=== PATIENT | male | born 1975 | race American Indian/Alaskan Native ===

== ENCOUNTER 2020-01-13 01:22 | Observation (INO) | payer OTHER ==
[2020-01-13] MEDS ORDERED: FAMOTIDINE 20 MG/2 ML INJ IV ONE (01:49)
[2020-01-13 02:08] LABS: Basophils # (Auto) 0.1 K/mm3 (0.0-0.1); Basophils % (Auto) 1.8 % (0.0-1.8); Eosinophils # (Auto) 0.1 K/mm3 (0.0-0.4); Eosinophils % (Auto) 1.7 % (0.0-4.3); Hematocrit 46.5 % (35.5-45.6); Hemoglobin 15.6 gm/dl (11.8-15.2); Lymphocytes # (Auto) 2.8 K/mm3 (1.2-5.4); Lymphocytes % (Auto) 39.1 % (13.4-35.0); Mean Corpuscular HGB Conc 34 % (32-34); Mean Corpuscular Volume 87 fl (84-94); Monocytes # (Auto) 0.6 K/mm3 (0.0-0.8); Platelet Count 323 K/mm3 (140-440); Red Blood Count 5.38 M/mm3 (3.65-5.03); Red Cell Distribution Width 14.8 % (13.2-15.2)
[2020-01-13 02:28] LABS: BUN/Creatinine Ratio 11; Blood Urea Nitrogen 12 mg/dL (9-20); Calcium 10.1 mg/dL (8.4-10.2); Hemolysis Index 6
--- NOTE | 2020-01-13 02:38 | Emergency Department Report ---
HPI - General Chief Complaint: Allergic Reaction Time Seen by Provider: 01/13/20 01:44 - HPI HPI: 44-year-old -Ivorian male presents to the emergency department with the complaint of swelling to the throat and some shortness of breath that appears to be an allergic reaction. The patient woke up this evening around 10 PM with the symptoms. He went to an urgent care where he received a steroid injection and some Benadryl and was told to come to the emergency department. The patient has a history of hypertension for which he takes lisinopril. He denies any swelling of the tongue, lips, difficulty swallowing. The patient also says that he feels improved from when the symptoms first began. He denies any fever, chest pain, lower extremity swelling, hives. ED Past Medical Hx - Past Medical History Previous Medical History?: Yes Hx Hypertension: Yes - Surgical History Past Surgical History?: Yes Additional Surgical History: left wrist - Social History Smoking Status: Current Every Day Smoker Substance Use Type: Alcohol ED Review of Systems ROS: Stated complaint: ALLERGIC REACTION/SWOLLEN THROAT Other details as noted in HPI Comment: All other systems reviewed and negative Constitutional: denies: chills, fever ENT: throat pain. denies: ear pain Respiratory: shortness of breath. denies: cough Cardiovascular: denies: chest pain, palpitations Gastrointestinal: denies: abdominal pain, vomiting Genitourinary: denies: dysuria, discharge Musculoskeletal: denies: back pain, arthralgia Neurological: denies: headache, weakness Physical Exam - Physical Exam Vital Signs: Vital Signs 01/13/20 01/13/20 01:27 01:32 Temperature 98.6 F Pulse Rate 99 H Respiratory 18 Rate Blood Pressure 242/171 Blood Pressure 220/120 [Right] O2 Sat by Pulse 98 Oximetry Physical Exam: GENERAL: The patient is well-developed well-nourished. HENT: Normocephalic. Atraumatic. Patient has moist mucous membranes. There is significant uvular edema seen. No drooling or trismus. Patient has a slightly muffled voice. EYES: Extraocular motions are intact. Pupils equal reactive to light bilaterally. NECK: Supple. Trachea is midline. CHEST/LUNGS: Clear to auscultation. There is no respiratory distress noted. HEART/CARDIOVASCULAR: Regular. There is no tachycardia. ABDOMEN: Abdomen is soft, nontender. Patient has normal bowel sounds. SKIN: Skin is warm and dry. NEURO: The patient is awake, alert, and oriented. The patient is cooperative. The patient has no focal neurologic deficits. Normal speech. MUSCULOSKELETAL: There is no tenderness or deformity. There is no evidence of acute injury. ED Course Vital Signs 01/13/20 01/13/20 01:27 01:32 Temperature 98.6 F Pulse Rate 99 H Respiratory 18 Rate Blood Pressure 242/171 Blood Pressure 220/120 [Right] O2 Sat by Pulse 98 Oximetry ED Medical Decision Making - Lab Data Result diagrams: 01/13/20 01:54 01/13/20 01:54 - Radiology Data Radiology results: report reviewed CT neck w con INDICATION / CLINICAL INFORMATION: 44 years Male; Pt complains of his throat swelling. TECHNIQUE: Contiguous thin cut axial images obtained through the neck following IV contrast. Sagittal and coronal reconstructions performed by the technologist. All CT scans at this location are performed using CT dose reduction for ALARA by means of automated exposure control. COMPARISON: None available. FINDINGS: There is extensive fluid signal along the prevertebral soft tissues, most notably at the C4-5 level measuring approximately 1 cm greatest AP dimension at. This collection is fairly well- circumscribed without significant peripheral enhancement and would appear to be reactive. Retropharyngeal abscess would be expected to demonstrate more irregular in appearance with enhancement. There are mild endplate changes anteriorly at C4-5 and C5-6. However, there is no clear CT evidence of erosive changes to indicate discitis. Furthermore, no significant hypertrophic changes are seen along the inferior arch of C1 to indicate tendinitis. MUCOSAL SPACE: There is prominence of the nasopharyngeal and palatine soft tissues which is nonspecific though may reflect lymphoid hypertrophy. There is motion artifact along the pharyngeal and laryngeal structures which may be related to swal lowing. The epiglottis is appropriate in size. There is suggestion of some edematous changes involving the right supraglottic soft tissues though this may be exacerbated by the degree of motion. There is effacement of the piriform sinuses bilaterally. LYMPH NODES: There are a few scattered cervical lymph nodes, the most prominent within the jugulodigastric regions measuring approximately 1.2 cm in short axis diameter on the right. The nodes are nonspecific though may also be reactive. SALIVARY GLANDS: The parotid and submandibular glands demonstrate fairly symmetric attenuation without calcifi cation. THYROID GLAND: The thyroid gland appears appropriate in size and contour without focal lesions. PARANASAL SINUSES: Visualized paranasal sinuses and mastoid air cells are essentially clear. SPINE: As above VASCULAR STRUCTURES: The vascular structures appear to demonstrate appropriate contrast opacification. There is a focus of air projected along the right tracheoesophageal groove near the right lung apex which is likely a developmental. This finding may reflect a small diverticulum at. No significant surrounding inflammatory changes are appreciated. IMPRESSION: 1. There is extensive fluid signal within the prevertebral soft tissues which is fairly well circumscribed without significant surrounding enhancement and would appear to be reactive as detailed above. There are also appear to be edematous changes involving the right supraglottic soft tissues that this may be exacerbated by the degree of motion as described. 2. There are few scattered borderline cervical lymph nodes which may also be a reactive. Additionally, there is prominence of the nasopharyngeal and palatine soft tissues indicative of lymphoid hypertrophy. - Medical Decision Making This patient presents to the emergency department for what appears to be an allergic reaction to lisinopril. The patient had 1 previous episode of some slight lip swelling a few days ago. This evening the patient felt a tingle in his throat and then woke up with throat swelling. He received some initial steroids and Benadryl at the urgent care and then presented to the emergency department. He was given Pepcid as a second antihistamine. The patient presented with extremely elevated blood pressure so he was given 2 doses of IV antihypertensive medication and once the blood pressure was had a more reasonable level he was given the subcutaneous epinephrine for the angioedema. This did improve his angioedema slightly but it caused his blood pressure to go back up. He has been given another dose of IV hydralazine and now another dose of IV steroids. CT scan of the neck with IV contrast does not show any obvious infectious process and appears to show soft tissue edema to the posterior pharynx consistent with his allergic reaction and angioedema. As there is a chance of rebound symptoms, and the patient has elevated and uncontrolled blood pressure, the patient will be admitted to the hospital for further evaluation and treatment and was accepted for admission by the hospitalist, Dr. Sofia. Critical Care Time: Yes Critical care time in (mins) excluding proc time.: 35 Critical care attestation.: If time is entered above; I have spent that time in minutes in the direct care of this critically ill patient, excluding procedure time. Critical care was spent on this patient in doing his initial evaluation, multiple re-evaluations, ordering and interpretation of labs and imaging, multiple doses of IV antihypertensive medication. Critical Care Time: 35 minutes ED Disposition Clinical Impression: Hypertensive urgency Angioedema Qualifiers: Encounter type: initial encounter Qualified Code(s): T78.3XXA - Angioneurotic edema, initial encounter Disposition: 09 OP ADMIT IP TO THIS HOSP Is pt being admited?: Yes Condition: Serious Referrals: PRIMARY CARE, [Primary Care Provider] - 3-5 Days Time of Disposition: 06:44
[2020-01-13] MEDS ORDERED: hydrALAZINE 20 MG/1 ML INJ IV ONE ×2 (03:02→06:40)
[2020-01-13] MEDS ORDERED: EPINEPHrine/PF 1 MG/1 ML INJ SUB-Q ONE (04:14)
--- NOTE | 2020-01-13 06:34 | Cat Scan Report ---
CT neck w con INDICATION / CLINICAL INFORMATION: 44 years Male; Pt complains of his throat swelling. TECHNIQUE: Contiguous thin cut axial images obtained through the neck following IV contrast. Sagittal and mckenna l reconstructions performed by the technologist. All CT scans at this location are performed using CT dose reduction for ALARA by means of automated exposure control. COMPARISON: None available. FINDINGS: There is extensive fluid signal along the prevertebral soft tissues, most notably at the C4 -5 level measuring approximately 1 cm greatest AP dimension at. This collection is fairly well-circum scribed without significant peripheral enhancement and would appear to be reactive. Retropharyngeal a bscess would be expected to demonstrate more irregular in appearance with enhancement. There are mild endplate changes anteriorly at C4-5 and C5-6. However, there is no clear CT evidence of erosive sidhu ges to indicate discitis. Furthermore, no significant hypertrophic changes are seen along the inferio r arch of C1 to indicate tendinitis. MUCOSAL SPACE: There is prominence of the nasopharyngeal and palatine soft tissues which is nonspecif ic though may reflect lymphoid hypertrophy. There is motion artifact along the pharyngeal and larynge al structures which may be related to swallowing. The epiglottis is appropriate in size. There is sug gestion of some edematous changes involving the right supraglottic soft tissues though this may be ex acerbated by the degree of motion. There is effacement of the piriform sinuses bilaterally. LYMPH NODES: There are a few scattered cervical lymph nodes, the most prominent within the jugulodiga stric regions measuring approximately 1.2 cm in short axis diameter on the right. The nodes are nonsp ecific though may also be reactive. SALIVARY GLANDS: The parotid and submandibular glands demonstrate fairly symmetric attenuation withou t calcification. THYROID GLAND: The thyroid gland appears appropriate in size and contour without focal lesions. PARANASAL SINUSES: Visualized paranasal sinuses and mastoid air cells are essentially clear. SPINE: As above VASCULAR STRUCTURES: The vascular structures appear to demonstrate appropriate contrast opacification . There is a focus of air projected along the right tracheoesophageal groove near the right lung apex w hich is likely a developmental. This finding may reflect a small diverticulum at. No significant surr ounding inflammatory changes are appreciated. IMPRESSION: 1. There is extensive fluid signal within the prevertebral soft tissues which is fairly well circumsc ribed without significant surrounding enhancement and would appear to be reactive as detailed above. There are also appear to be edematous changes involving the right supraglottic soft tissues that this may be exacerbated by the degree of motion as described. 2. There are few scattered borderline cervical lymph nodes which may also be a reactive. Additionally , there is prominence of the nasopharyngeal and palatine soft tissues indicative of lymphoid hypertro phy. Signer Name: Butch Patel MD Signed: 01/13/2020 6:30 AM Workstation Name: [id number]
[2020-01-13] MEDS ORDERED: methylPREDNISolone Sod Succinate 125 MG/2 ML INJ IV ONE (06:44)
--- NOTE | 2020-01-13 08:48 | History and Physical Report ---
History of Present Illness Date of examination: 01/13/20 Date of admission: 01/13/20 Chief complaint: Difficulty swallowing History of present illness: 44-year-old -L[place] male with h/o HTN for which he takes lisinopril, tobacco and alcohol abuse presents to the emergency department with the complaint of swelling to the throat and some shortness of breath since last night. The patient woke up this evening around 10 PM with the symptoms. He then went to an urgent care where he received a steroid injection and some Benadryl and was told to come to the emergency department. He denies any swelling of the tongue, lips, difficulty swallowing. Head and neck CT was unremarkable. Patient was admitted with observation status for further Mx. Past Medical Hx - Past Medical History Previous Medical History?: Yes Hx Hypertension: Yes - Family history Hx Hypertension: No - Surgical History Past Surgical History?: Yes Additional Surgical History: left wrist - Social History Smoking Status: Current Every Day Smoker Substance Use Type: Alcohol Review of Systems Constitutional: denies: chills, fever ENT: throat pain. denies: ear pain Respiratory: shortness of breath. denies: cough Cardiovascular: denies: chest pain, palpitations Gastrointestinal: denies: abdominal pain, vomiting Genitourinary: denies: dysuria, discharge Musculoskeletal: denies: back pain, arthralgia Skin: no rash Neurological: denies: headache, weakness Physical Exam: GENERAL: The patient is well-developed well-nourished. HENT: Normocephalic. Atraumatic. Patient has moist mucous membranes. There is significant uvular edema seen. No drooling or trismus. Patient has a slightly muffled voice. EYES: Extraocular motions are intact. Pupils equal reactive to light bilaterally. NECK: Supple. Trachea is midline. CHEST/LUNGS: Clear to auscultation. There is no respiratory distress noted. HEART/CARDIOVASCULAR: Regular. There is no tachycardia. ABDOMEN: Abdomen is soft, nontender. Patient has normal bowel sounds. SKIN: Skin is warm and dry. NEURO: The patient is awake, alert, and oriented. The patient is cooperative. The patient has no focal neurologic deficits. Normal speech. MUSCULOSKELETAL: There is no tenderness or deformity. There is no evidence of acute injury. Medications and Allergies Allergies Allergy/AdvReac Type Severity Reaction Status Date / Time lisinopril Allergy Severe Angioedema Verified 01/13/20 08:48 Home Medications Medication Instructions Recorded Confirmed Last Taken Type Metoprolol [Lopressor TAB] 100 mg PO BID #60 tablet 01/14/20 Unknown Rx amLODIPine 10 mg PO DAILY #30 tablet 01/14/20 Unknown Rx diphenhydrAMINE [Benadryl CAP] 25 mg PO Q6HR PRN #10 capsule 01/14/20 Unknown Rx hydroCHLOROthiazide 12.5 mg PO QDAY #30 cap 01/14/20 Unknown Rx [Hydrochlorothiazide] predniSONE [Deltasone] 50 mg PO QDAY #3 tab 01/14/20 Unknown Rx Exam - Constitutional Vitals: Temp Pulse Resp BP Pulse Ox 98.6 F 116 H 18 185/119 98 01/13/20 01:27 01/13/20 08:08 01/13/20 08:08 01/13/20 08:08 01/13/20 08:08 Results - Labs CBC & Chem 7: 01/13/20 01:54 01/13/20 01:54 Labs: Abnormal lab results 01/13/20 01/13/20 Range/Units 01:54 01:54 RBC 5.38 H (3.65-5.03) M/mm3 Hgb 15.6 H (11.8-15.2) gm/dl Hct 46.5 H (35.5-45.6) % Lymph % (Auto) 39.1 H (13.4-35.0) % [place] % (Auto) 8.0 H (0.0-7.3) % Sodium 136 L (137-145) mmol/L Chloride 95.5 L (98-107) mmol/L Glucose 115 H (75-100) mg/dL Assessment and Plan Angioedema due to lisinopril Accelerated HTN Obesity Tobacco abuse Alcohol abuse - Admit to telemetry for observation - cont solumedrol scheduled and benadryl as needed - will stop lisinopril - woll add metoprolol and norvasc for HTN, iv hydralazine as needed - start on cardiac diet if passes bedside swallow - SCd for dvt Px - counselled to quit smoking and to quit alcohol - if clinically stable possible d/c tomorrow
[2020-01-13] MEDS ORDERED: hydrALAZINE 20 MG/1 ML INJ IV PRN (08:49)
[2020-01-13] MEDS ORDERED: ACETAMINOPHEN 325 MG TAB PO PRN (08:49)
[2020-01-13] MEDS ORDERED: ACETAMINOPHEN 325 MG TAB ONE (09:02)
[2020-01-13] MEDS ORDERED: diphenhydrAMINE 50 MG/ML VIAL IV PRN (13:20)
[2020-01-13] MEDS: FAMOTIDINE 10 MG TAB PO SCH ×2 (15:00→21:55)
[2020-01-13] MEDS: METOPROLOL TARTRATE 50 MG TAB PO SCH ×2 (15:00→21:54)
[2020-01-13] MEDS: amLODIPine 10 MG TAB PO SCH (15:00)
[2020-01-13] MEDS: ENOXAPARIN 60 MG/0.6 ML INJ SUB-Q SCH (15:37)
[2020-01-13] MEDS: methylPREDNISolone Sod Succinate 40 MG/1 ML INJ IV SCH ×2 (15:42→21:54)
[2020-01-14] MEDS: methylPREDNISolone Sod Succinate 40 MG/1 ML INJ IV SCH (06:01)
[2020-01-14 07:57] VITALS: BP 154/104
[2020-01-14] MEDS: amLODIPine 10 MG TAB PO SCH (09:14)
[2020-01-14] MEDS: FAMOTIDINE 10 MG TAB PO SCH (09:14)
[2020-01-14] MEDS: METOPROLOL TARTRATE 50 MG TAB PO SCH (09:15)
[2020-01-14] MEDS: ENOXAPARIN 60 MG/0.6 ML INJ SUB-Q SCH (09:15)
[2020-01-14] MEDS ORDERED: METOPROLOL TARTRATE 50 MG TAB PO SCH (11:00)
--- NOTE | 2020-01-14 11:17 | Discharge Summary ---
Providers - Providers Date of Admission: 01/13/20 06:44 Date of discharge: 01/14/20 Attending physician: LILIA PÉREZ Primary care physician: ENTRY LEVEL PROJECT COORDINATOR Hospitalization Condition: Serious Pertinent studies: Head and neck CT Hospital course: 44-year-old -Taj[place] male with h/o HTN for which he takes lisinopril presents to the emergency department with the complaint of swelling to the throat and some shortness of breath. He went to an urgent care where he received a steroid injection and some Benadryl and was told to come to the emergency department. Head and neck CT was unremarkable. Patient was admitted with observation status for further Mx. His BP was accelerated on admission. He was monitored overnight, lisinopril stopped, placed on Benadryl and solumedrol. His symptoms remained stable and was tolerating diet. His BP medications were adjusted, he was then discharged home in stable condition. He was counselled for diet, exercise and also counselled for tobacco and alcohol abuse. Discharge diagnosis: Angioedema due to lisinopril Accelerated HTN Obesity Tobacco abuse Alcohol abuse Physical Exam: GENERAL: The patient is well-developed well-nourished. HENT: Normocephalic. Atraumatic. Patient has moist mucous membranes. There is significant uvular edema seen. No drooling or trismus. Patient has a slightly muffled voice. EYES: Extraocular motions are intact. Pupils equal reactive to light bilaterally. NECK: Supple. Trachea is midline. CHEST/LUNGS: Clear to auscultation. There is no respiratory distress noted. HEART/CARDIOVASCULAR: Regular. There is no tachycardia. ABDOMEN: Abdomen is soft, nontender. Patient has normal bowel sounds. SKIN: Skin is warm and dry. NEURO: The patient is awake, alert, and oriented. The patient is cooperative. The patient has no focal neurologic deficits. Normal speech. MUSCULOSKELETAL: There is no tenderness or deformity. There is no evidence of acute injury. Disposition: - TO HOME OR SELFCARE Time spent for discharge: 34 minutes Core Measure Documentation - Palliative Care Palliative Care/ Comfort Measures: Not Applicable - Core Measures Any of the following diagnoses?: none Exam - Constitutional Vitals: Temp Pulse Resp BP Pulse Ox 97.8 F 90 20 154/104 95 01/14/20 07:47 01/14/20 09:15 01/14/20 07:47 01/14/20 09:15 01/14/20 07:47 Plan Activity: advance as tolerated Weight Bearing Status: Weight Bear as Tolerated Diet: low fat, low salt Special Instructions: smoking cessation, other (alcohol cessation) Follow up with: PRIMARY CARE, [Primary Care Provider] - 3-5 Days JOSE ANTONIO BOND MD [Staff Physician] - 7 Days Prescriptions: amLODIPine 10 mg PO DAILY #30 tablet diphenhydrAMINE [Benadryl CAP] 25 mg PO Q6HR PRN #10 capsule PRN Reason: Angioedema predniSONE [Deltasone] 50 mg PO QDAY #3 tab hydroCHLOROthiazide [Hydrochlorothiazide] 12.5 mg PO QDAY #30 cap Metoprolol [Lopressor TAB] 100 mg PO BID #60 tablet
--- NOTE | 2020-01-14 14:17 | Cat Scan Report ---
CT HEAD WITHOUT CONTRAST INDICATION / CLINICAL INFORMATION: Sensory disturbance with left-sided numbness and paresthesias. TECHNIQUE: All CT scans at this location are performed using CT dose reduction for ALARA by means of automated e xposure control. COMPARISON: None available. FINDINGS: HEMORRHAGE: No evidence of intracranial hemorrhage or extra-axial fluid collection. EXTRA-AXIAL SPACES: Cortical sulci, sylvian fissures and basilar cisterns have an unremarkable appear ance. VENTRICULAR SYSTEM: The ventricular system is of normal size and configuration. CEREBRAL PARENCHYMA: No areas of abnormal brain parenchymal attenuation are identified. There is no i ndication of recent infarction. MIDLINE SHIFT OR HERNIATION: There is no mass effect. CEREBELLUM / BRAINSTEM: Brainstem and cerebellum have an unremarkable appearance. MIDLINE STRUCTURES:No abnormalities of the pituitary gland or pineal region are identified. INTRACRANIAL VESSELS:No abnormalities are identified on this noncontrast head CT. ORBITS: visualized portions of the orbits have an unremarkable appearance. SOFT TISSUES of HEAD: No significant abnormality. CALVARIUM: Evaluation of bone windows reveals no abnormalities. PARANASAL SINUSES / MASTOID AIR CELLS: Paranasal sinuses are free from inflammatory mucosal disease. Mastoid air cells are normally pneumatized. IMPRESSION: 1. No acute intracranial abnormality. Signer Name: Mario Ma MD Signed: 01/14/2020 2:12 PM Workstation Name: [email or web address]
[2020-01-15] MEDS ORDERED: methylPREDNISolone Sod Succinate 40 MG/1 ML INJ IV SCH (10:00)
== END 2020-01-14 16:39 | disposition home or self-care (01) ==
LOC: ED 01:22 → 4A 06:44
PROVIDERS: ADMIT Internal Medicine Geriatric Medicine; ATTEND Internal Medicine
DX: I16.0 Hypertensive urgency (principal); T78.3XXA Angioneurotic edema, initial encounter; E66.9 Obesity, unspecified; F17.210 Nicotine dependence, cigarettes, uncomplicated
CPT/HCPCS: 36415; 70450; 70491; 80048; 85025; 87116; 87430; 96372; 96374; 96375; 96376; 99291; 99406; G0378; J0171; J0360; J1650; J2920; J2930; Q9967

== ENCOUNTER 2020-04-22 12:51 | Emergency (ER) | payer SELFPAY ==
--- NOTE | 2020-04-22 14:56 | XRay Report ---
CHEST 1 VIEW 04/22/2020 2:29 PM INDICATION / CLINICAL INFORMATION: SOB, hemoptysis. COMPARISON: None available. FINDINGS: SUPPORT DEVICES: None. HEART / MEDIASTINUM: Heart is upper normal size for AP portable technique. Mild pulmonary venous hype rtension. LUNGS / PLEURA: Borderline interstitial edema. No acute airspace disease. No pneumothorax. ADDITIONAL FINDINGS: No significant additional findings. IMPRESSION: 1. Borderline cardiomegaly with borderline interstitial edema. Signer Name: Jaylon Worthy MD Signed: 04/22/2020 2:52 PM Workstation Name: [id number]
--- NOTE | 2020-04-22 15:33 | Emergency Department Report ---
<LUCAS ROSENTHAL - Last Filed: 04/22/20 19:00> ED General Adult HPI - General Chief complaint: High BP Stated complaint: COUGHING UP BLOOD/WHEEZING Time Seen by Provider: 04/22/20 14:25 - Related Data Previous Rx's Medication Instructions Recorded Last Taken Type diphenhydrAMINE [Benadryl CAP] 25 mg PO Q6HR PRN #10 capsule 01/14/20 Unknown Rx predniSONE [Deltasone] 50 mg PO QDAY #3 tab 01/14/20 Unknown Rx Albuterol Sulfate [Proventil Hfa] 6.7 gm IH TID PRN #1 hfa.aer.ad 04/22/20 Unknown Rx Amoxicillin [Trimox CAP] 1,000 mg PO Q8H 7 Days #42 capsule 04/22/20 Unknown Rx Metoprolol [Lopressor TAB] 100 mg PO BID #60 tablet 04/22/20 Unknown Rx Prednisone [predniSONE 10 mg 10 mg PO .TAPER #1 tab.ds.pk 04/22/20 Unknown Rx (6-Day Pack, 21 Tabs)] amLODIPine 10 mg PO DAILY #30 tablet 04/22/20 Unknown Rx hydroCHLOROthiazide 12.5 mg PO QDAY #30 cap 04/22/20 Unknown Rx [Hydrochlorothiazide] Allergies Allergy/AdvReac Type Severity Reaction Status Date / Time lisinopril Allergy Severe Angioedema Verified 01/13/20 08:48 ED Past Medical Hx - Medications Home Medications: Home Medications Medication Instructions Recorded Confirmed Last Taken Type diphenhydrAMINE [Benadryl CAP] 25 mg PO Q6HR PRN #10 capsule 01/14/20 Unknown Rx predniSONE [Deltasone] 50 mg PO QDAY #3 tab 01/14/20 Unknown Rx Albuterol Sulfate [Proventil Hfa] 6.7 gm IH TID PRN #1 hfa.aer.ad 04/22/20 Unknown Rx Amoxicillin [Trimox CAP] 1,000 mg PO Q8H 7 Days #42 capsule 04/22/20 Unknown Rx Metoprolol [Lopressor TAB] 100 mg PO BID #60 tablet 04/22/20 Unknown Rx Prednisone [predniSONE 10 mg 10 mg PO .TAPER #1 tab.ds.pk 04/22/20 Unknown Rx (6-Day Pack, 21 Tabs)] amLODIPine 10 mg PO DAILY #30 tablet 04/22/20 Unknown Rx hydroCHLOROthiazide 12.5 mg PO QDAY #30 cap 04/22/20 Unknown Rx [Hydrochlorothiazide] ED Course - Reevaluation(s) Reevaluation #1: 04/22/20 19:01 Patient is observed in this department for hours without clinical decompensation. No active coughing, vomiting or hemoptysis were observed. Hypertension is chronic. We will refill his blood pressure medications, refer him to outpatient pulmonology, he will be counseled to discontinue smoking/tobacco consumption, we will cover with empiric antibiotics, and counseled him to closely follow-up with outpatient pulmonology. ED Medical Decision Making - Lab Data Result diagrams: 04/22/20 14:56 04/22/20 14:56 ED Disposition Clinical Impression: Hemoptysis, SOB (shortness of breath), Hypertensive urgency, Ground glass opacity present on imaging of lung Disposition: DC-01 TO HOME OR SELFCARE Condition: Stable Instructions: Acute Hemoptysis (ED), Hypertensive Crisis (ED), Pneumonia (ED) Additional Instructions: Please take medication as prescribed. Please increase your water intake. Please take your blood pressure medicine. Eat a low-sodium (low salt) diet. Incorporate 30 to 60 minutes of daily exercise. Follow-up with your primary care doctor. Follow-up with a turner splitter machine operator. Return to emergency room for any new or worsening symptoms. Prescriptions: amLODIPine 10 mg PO DAILY #30 tablet hydroCHLOROthiazide [Hydrochlorothiazide] 12.5 mg PO QDAY #30 cap Metoprolol [Lopressor TAB] 100 mg PO BID #60 tablet Prednisone [predniSONE 10 mg (6-Day Pack, 21 Tabs)] 10 mg PO .TAPER #1 tab.ds.pk Albuterol Sulfate [Proventil Hfa] 6.7 gm IH TID PRN #1 hfa.aer.ad PRN Reason: Shortness Of Breath Amoxicillin [Trimox CAP] 1,000 mg PO Q8H 7 Days #42 capsule Referrals: CARMEN SANCHEZ MD [Staff Physician] - 2-3 Days [facility] [Provider Group] - 2-3 Days LANEY SANDOVAL MD [Staff Physician] - 2-3 Days DARYA COLBERT MD [Staff Physician] - 2-3 Days Print Language: ETHIOPIAN <SONI BUSH. - Last Filed: 04/24/20 08:58> ED General Adult HPI - General Source: patient Mode of arrival: Ambulatory Limitations: No Limitations - History of Present Illness Initial comments: Patient is a 44-year-old male who presents emergency room with complaints of hemoptysis that began today. He states he had multiple episodes of coughing up bright red blood. He states that he also feels like he has wheezing and shortness of breath. Patient states that he does have discomfort with taking a deep breath then but otherwise denies any chest pain. He denies any back pain, abdominal pain, hematochezia, hematemesis, melena, nausea, vomiting, diarrhea, fever, leg swelling. He denies any sick contacts or recent travel. He denies any recent surgery or hormone use. He has a past medical history of hypertension and states that he has not taken his amlodipine for approximately 3 weeks. He has an allergy to lisinopril. He denies any tobacco use, alcohol use, drug use. ED Review of Systems ROS: Stated complaint: COUGHING UP BLOOD/WHEEZING Other details as noted in HPI Comment: All other systems reviewed and negative ED Past Medical Hx - Past Medical History Hx Hypertension: Yes - Surgical History Additional Surgical History: left wrist - Social History Smoking Status: Never Smoker ED Physical Exam - General Limitations: No Limitations General appearance: alert, in no apparent distress - Head Head exam: Present: atraumatic, normocephalic - Eye Eye exam: Present: normal appearance - ENT ENT exam: Present: mucous membranes moist - Respiratory Respiratory exam: Present: normal lung sounds bilaterally. Absent: respiratory distress, wheezes, rales, rhonchi, stridor, chest wall tenderness, accessory muscle use, decreased breath sounds, prolonged expiratory - Cardiovascular Cardiovascular Exam: Present: regular rate, normal rhythm, normal heart sounds. Absent: systolic murmur, diastolic murmur, rubs, gallop - Extremities Exam Extremities exam: Absent: pedal edema - Neurological Exam Neurological exam: Present: alert, oriented X3 - Psychiatric Psychiatric exam: Present: normal affect, normal mood - Skin Skin exam: Present: warm, dry, intact ED Course Vital Signs 04/22/20 04/22/20 04/22/20 13:23 14:38 14:45 Temperature 98.2 F Pulse Rate 107 H 88 Respiratory 18 16 21 Rate Blood Pressure 223/158 211/154 Blood Pressure [Right] O2 Sat by Pulse 94 98 96 Oximetry 04/22/20 04/22/20 04/22/20 15:00 15:12 15:24 Temperature Pulse Rate 82 91 H Respiratory 12 Rate Blood Pressure 214/150 214/150 191/137 Blood Pressure [Right] O2 Sat by Pulse 94 98 Oximetry 04/22/20 04/22/20 04/22/20 15:30 15:45 16:00 Temperature Pulse Rate 87 86 Respiratory 24 26 H Rate Blood Pressure 173/124 169/116 175/123 Blood Pressure [Right] O2 Sat by Pulse 96 92 89 Oximetry 04/22/20 04/22/20 04/22/20 16:15 16:30 16:45 Temperature Pulse Rate 81 89 79 Respiratory 14 23 17 Rate Blood Pressure 187/117 181/120 178/114 Blood Pressure [Right] O2 Sat by Pulse 96 94 92 Oximetry 04/22/20 04/22/20 04/22/20 17:00 18:14 20:45 Temperature Pulse Rate 83 86 96 H Respiratory 24 17 Rate Blood Pressure 193/127 199/135 Blood Pressure 177/128 [Right] O2 Sat by Pulse 94 97 Oximetry ED Medical Decision Making - Lab Data Result diagrams: 04/22/20 14:56 04/22/20 14:56 Lab Results 04/22/20 04/22/20 04/22/20 Range/Units 14:56 14:56 14:56 WBC 7.4 (4.5-11.0) K/mm3 RBC 5.20 H (3.65-5.03) M/mm3 Hgb 15.3 H (11.8-15.2) gm/dl Hct 46.2 H (35.5-45.6) % MCV 89 (84-94) fl MCH 30 (28-32) pg MCHC 33 (32-34) % RDW 13.7 (13.2-15.2) % Plt Count 280 (140-440) K/mm3 Lymph % (Auto) 24.0 (13.4-35.0) % [place] % (Auto) 10.2 H (0.0-7.3) % Eos % (Auto) 3.6 (0.0-4.3) % Baso % (Auto) 1.1 (0.0-1.8) % Lymph # 1.8 (1.2-5.4) K/mm3 [place] # 0.8 (0.0-0.8) K/mm3 Eos # 0.3 (0.0-0.4) K/mm3 Baso # 0.1 (0.0-0.1) K/mm3 Seg Neutrophils % 61.1 (40.0-70.0) % Seg Neutrophils # 4.5 (1.8-7.7) K/mm3 PT 12.9 (12.2-14.9) Sec. INR 0.96 (0.87-1.13) APTT 29.1 (24.2-36.6) Sec. D-Dimer 555.09 H (0-234) ng/mlDDU Sodium 139 (137-145) mmol/L Potassium 3.5 L (3.6-5.0) mmol/L Chloride 100.1 (98-107) mmol/L Carbon Dioxide 24 (22-30) mmol/L Anion Gap 18 mmol/L BUN 15 (9-20) mg/dL Creatinine 1.1 (0.8-1.3) mg/dL Estimated GFR > 60 ml/min BUN/Creatinine Ratio 14 % Glucose 100 (75-100) mg/dL Calcium 9.4 (8.4-10.2) mg/dL Total Bilirubin 0.30 (0.1-1.2) mg/dL AST 13 (5-40) units/L ALT 15 (7-56) units/L Alkaline Phosphatase 97 (35-129) units/L Troponin T < 0.010 (0.00-0.029) ng/mL NT-Pro-B Natriuret Pep (0-450) pg/mL Total Protein 7.7 (6.3-8.2) g/dL Albumin 3.9 (3.9-5) g/dL Albumin/Globulin Ratio 1.0 % 04/22/20 04/22/20 Range/Units 14:56 17:15 WBC (4.5-11.0) K/mm3 RBC (3.65-5.03) M/mm3 Hgb (11.8-15.2) gm/dl Hct (35.5-45.6) % MCV (84-94) fl MCH (28-32) pg MCHC (32-34) % RDW (13.2-15.2) % Plt Count (140-440) K/mm3 Lymph % (Auto) (13.4-35.0) % [place] % (Auto) (0.0-7.3) % Eos % (Auto) (0.0-4.3) % Baso % (Auto) (0.0-1.8) % Lymph # (1.2-5.4) K/mm3 [place] # (0.0-0.8) K/mm3 Eos # (0.0-0.4) K/mm3 Baso # (0.0-0.1) K/mm3 Seg Neutrophils % (40.0-70.0) % Seg Neutrophils # (1.8-7.7) K/mm3 PT (12.2-14.9) Sec. INR (0.87-1.13) APTT (24.2-36.6) Sec. D-Dimer (0-234) ng/mlDDU Sodium (137-145) mmol/L Potassium (3.6-5.0) mmol/L Chloride (98-107) mmol/L Carbon Dioxide (22-30) mmol/L Anion Gap mmol/L BUN (9-20) mg/dL Creatinine (0.8-1.3) mg/dL Estimated GFR ml/min BUN/Creatinine Ratio % Glucose (75-100) mg/dL Calcium (8.4-10.2) mg/dL Total Bilirubin (0.1-1.2) mg/dL AST (5-40) units/L ALT (7-56) units/L Alkaline Phosphatase (35-129) units/L Troponin T < 0.010 (0.00-0.029) ng/mL NT-Pro-B Natriuret Pep 1648 H (0-450) pg/mL Total Protein (6.3-8.2) g/dL Albumin (3.9-5) g/dL Albumin/Globulin Ratio % Vital Signs 04/22/20 04/22/20 04/22/20 13:23 14:38 14:45 Temperature 98.2 F Pulse Rate 107 H 88 Respiratory 18 16 21 Rate Blood Pressure 223/158 211/154 Blood Pressure [Right] O2 Sat by Pulse 94 98 96 Oximetry 04/22/20 04/22/20 04/22/20 15:00 15:12 15:24 Temperature Pulse Rate 82 91 H Respiratory 12 Rate Blood Pressure 214/150 214/150 191/137 Blood Pressure [Right] O2 Sat by Pulse 94 98 Oximetry 04/22/20 04/22/20 04/22/20 15:30 15:45 16:00 Temperature Pulse Rate 87 86 Respiratory 24 26 H Rate Blood Pressure 173/124 169/116 175/123 Blood Pressure [Right] O2 Sat by Pulse 96 92 89 Oximetry 04/22/20 04/22/20 04/22/20 16:15 16:30 16:45 Temperature Pulse Rate 81 89 79 Respiratory 14 23 17 Rate Blood Pressure 187/117 181/120 178/114 Blood Pressure [Right] O2 Sat by Pulse 96 94 92 Oximetry 04/22/20 04/22/20 04/22/20 17:00 18:14 20:45 Temperature Pulse Rate 83 86 96 H Respiratory 24 17 Rate Blood Pressure 193/127 199/135 Blood Pressure 177/128 [Right] O2 Sat by Pulse 94 97 Oximetry - EKG Data EKG shows normal: sinus rhythm Rate: normal - EKG Data 04/22/20 19:51 LVH LAD No STEMI - Radiology Data Radiology results: report reviewed CHEST 1 VIEW 04/22/2020 2:29 PM INDICATION / CLINICAL INFORMATION: SOB, hemoptysis. COMPARISON: None available. FINDINGS: SUPPORT DEVICES: None. HEART / MEDIASTINUM: Heart is upper normal size for AP portable technique. Mild pulmonary venous hypertension. LUNGS / PLEURA: Borderline interstitial edema. No acute airspace disease. No pneumothorax. ADDITIONAL FINDINGS: No significant additional findings. IMPRESSION: 1. Borderline cardiomegaly with borderline interstitial edema. Signer Name: Jaylon Worthy MD Signed: 04/22/2020 2:52 PM Workstation Name: [id number] Transcribed By: DT Dictated By: Felix Worthy MD Electronically Authenticated By: Felix Worthy MD Signed Date/Time: 04/22/201451 DD/ 50 TD/TT: CT angio chest, CT angio abdomen pelvis INDICATION / CLINICAL INFORMATION: Hemoptysis, HTN, r/o PE/dissection. TECHNIQUE: Axial CT images were obtained after injection of Omnipaque 300, 100 cc IV contrast using CTA protocol. 3 plane MIP / 3D reconstructions were produced. All CT scans at this location are performed using CT dose reduction for ALARA by means of automated exposure control. COMPARISON: None available. CTA CHEST: Negative for aneurysm, dissection or pulmonary embolus. No mediastinal mass. A few small mediastinal nodes are likely reactive. Evaluation of the lungs demonstrates patchy groundglass opacity scattered at the right chest slightly more localized anteriorly. No pleural fluid or significant left-sided infiltrate. CTA ABDOMEN: Negative for aneurysm, dissection or pulmonary embolus. The parenchymal organs are unremarkable other than fatty infiltration of the liver. Negative for abdominal inflammation. Diastases of the rectus muscles with mild eventration is seen at the anterior abdominal wall. CTA PELVIS: Iliac vessels are widely patent. No dissection. Negative for pelvic inflammatory process. IMPRESSION: 1. Negative for aneurysm, dissection or pulmonary embolus. 2. Patchy groundglass opacity right chest. Main differential includes hemorrhage and atypical infection. Signer Name: Louis Lara MD Signed: 04/22/2020 6:34 PM Workstation Name: [email or web address][id number] Transcribed By: ES Dictated By: Louis Lara MD Electronically Authenticated By: Louis Lara MD Signed Date/Time: 04/22/201833 DD/ 31 TD/TT: - Medical Decision Making Patient is a 44-year-old male who presents emergency room with complaints of hemoptysis that began today. He states he had multiple episodes of coughing up bright red blood. He states that he also feels like he has wheezing and shortness of breath. Patient states that he does have discomfort with taking a deep breath then but otherwise denies any chest pain. He denies any back pain, abdominal pain, hematochezia, hematemesis, melena, nausea, vomiting, diarrhea, fever, leg swelling. He denies any sick contacts or recent travel. He denies any recent surgery or hormone use. He has a past medical history of hypertension and states that he has not taken his amlodipine for approximately 3 weeks. He has an allergy to lisinopril. He denies any tobacco use, alcohol use, drug use. initial vitals with tachycardia and hypertension. On exam breath sounds are clear bilaterally. EKG shows LVH, LAD, no STEMI, normal sinus rhythm. Labs significant for elevated d-dimer and mildly elevated BNP. CXR: 1. Borderline cardiomegaly with borderline interstitial edema. CT angio chest and abd pelvis ordered to r/o intraaortic pathology/PE/mass/PNA and shows: 1. Negative for aneurysm, dissection or pulmonary embolus. 2. Patchy groundglass opacity right chest. Main differential includes hemorrhage and atypical infection. Patient given labetalol, p.o. hydralazine, Lasix and blood pressure improved. Patient was ambulated in the emergency department and had no hypoxia, he did have a few recordings of his vitals from the monitor with hypoxia but when it was repeated at the bedside his oxygen saturation was greater than 95% on RA at all times. He had no signs of decompensation. He states that he actually feels much better and did not have any episodes of hemoptysis while in the emergency department and is ready to go home. Discussed all results with Dr. Rosenthal, ER attending please see his note, he states that hemorrhage unlikely and most likely due to an atypical infection, he advised to cover patient with amoxicillin and azithromycin. Patient given a refill of his blood pressure medications present in his medical record. Discussed the importance with patient of taking his blood pressure medicine. Discussed the importance of primary care follow-up and pulmonology follow-up, patient verbalized understanding. Discussed the risks associated with chronically uncontrolled hypertension including but not limited to damage to the heart, kidneys, vision, stroke, etc. advised pt Please take medication as prescribed. Please increase your water intake. Please take your blood pressure medicine. Eat a low-sodium (low salt) diet. Incorporate 30 to 60 minutes of daily exercise. Follow-up with your primary care doctor. Follow-up with a turner splitter machine operator. Return to emergency room for any new or worsening symptoms. - Differential Diagnosis HTN urgency/emergency, PE, aortic dissection, mass, PNA, ACS, PTX, effusion Critical care attestation.: If time is entered above; I have spent that time in minutes in the direct care of this critically ill patient, excluding procedure time. ED Disposition Is pt being admited?: No Does the pt Need Aspirin: No Time of Disposition: 19:06
[2020-04-22 15:38] LABS: Basophils # (Auto) 0.1 K/mm3 (0.0-0.1); Basophils % (Auto) 1.1 % (0.0-1.8); Eosinophils # (Auto) 0.3 K/mm3 (0.0-0.4); Eosinophils % (Auto) 3.6 % (0.0-4.3); Hematocrit 46.2 % (35.5-45.6); Hemoglobin 15.3 gm/dl (11.8-15.2); Lymphocytes # (Auto) 1.8 K/mm3 (1.2-5.4); Mean Corpuscular HGB Conc 33 % (32-34); Mean Corpuscular Volume 89 fl (84-94); Monocytes # (Auto) 0.8 K/mm3 (0.0-0.8); Monocytes % (Auto) 10.2 % (0.0-7.3); Platelet Count 280 K/mm3 (140-440); Red Cell Distribution Width 13.7 % (13.2-15.2)
[2020-04-22 16:18] LABS: INR 0.96 (0.87-1.13)
[2020-04-22 16:19] LABS: Partial Thromboplastin Time 29.1 Sec. (24.2-36.6)
[2020-04-22 16:22] LABS: Alanine Aminotransferase 15 units/L (7-56); Albumin 3.9 g/dL (3.9-5); BUN/Creatinine Ratio 14; Blood Urea Nitrogen 15 mg/dL (9-20); Calcium 9.4 mg/dL (8.4-10.2); Hemolysis Index 8
[2020-04-22] MEDS ORDERED: POTASSIUM CHLORIDE ER 20 MEQ TAB PO ONE (16:28)
[2020-04-22] MEDS ORDERED: hydrALAZINE 20 MG/1 ML INJ IV ONE (17:48)
[2020-04-22] MEDS ORDERED: FUROSEMIDE 40 MG/4 ML INJ IV ONE (17:48)
[2020-04-22] MEDS ORDERED: hydrALAZINE 25 MG TAB PO ONE (18:07)
--- NOTE | 2020-04-22 18:39 | Cat Scan Report ---
CT angio chest, CT angio abdomen pelvis INDICATION / CLINICAL INFORMATION: Hemoptysis, HTN, r/o PE/dissection. TECHNIQUE: Axial CT images were obtained after injection of Omnipaque 300, 100 cc IV contrast using CTA protocol . 3 plane MIP / 3D reconstructions were produced. All CT scans at this location are performed using C T dose reduction for ALARA by means of automated exposure control. COMPARISON: None available. CTA CHEST: Negative for aneurysm, dissection or pulmonary embolus. No mediastinal mass. A few small m ediastinal nodes are likely reactive. Evaluation of the lungs demonstrates patchy groundglass opacity scattered at the right chest slightly more localized anteriorly. No pleural fluid or significant left-sided infiltrate. CTA ABDOMEN: Negative for aneurysm, dissection or pulmonary embolus. The parenchymal organs are unremarkable other than fatty infiltration of the liver. Negative for abdo yan inflammation. Diastases of the rectus muscles with mild eventration is seen at the anterior abd ominal wall. CTA PELVIS: Iliac vessels are widely patent. No dissection. Negative for pelvic inflammatory process. IMPRESSION: 1. Negative for aneurysm, dissection or pulmonary embolus. 2. Patchy groundglass opacity right chest. Main differential includes hemorrhage and atypical infecti on. Signer Name: Louis Lara MD Signed: 04/22/2020 6:34 PM Workstation Name: [id number]
[2020-04-23 08:25] VITALS: BP 177/128
== END 2020-04-22 20:45 | disposition home or self-care (01) ==
LOC: ED 12:51
DX: R04.2 Hemoptysis (principal); R06.02 Shortness of breath; I16.0 Hypertensive urgency; R91.8 Other nonspecific abnormal finding of lung field; Z79.899 Other long term (current) drug therapy; Z88.8 Allergy status to other drugs, medicaments and biological substances
CPT/HCPCS: 36415; 71045; 71275; 74174; 80053; 83880; 84484; 85025; 85379; 85610; 85730; 93005; 96374; 96375; 99285; J1940; Q9967